=== PATIENT | female | born 1940 | race Caucasian/White ===

== ENCOUNTER 2016-06-13 10:17 | Inpatient (IN) | payer OTHER ==
[~2016-06-13] VITALS: Ht 162.6 cm; Wt 100.0 kg
[~2016-06-13 10:17] MED LIST: ACETAMINOPHEN650 M7 PO; ALLOPURINOL300 MG PO; ASCORBIC ACID500 MG PO; ASPIRIN81 M1 PO; ATORVASTATIN CA10 MG PO; Ascorbic Acid,Ester- PO; BACTRIM,SEPT1 TABLET PO; CALTRATE PLUS1 EACH PO; COUMADIN5 MG PO; Coumadin Protocol PO; D-20002000 UNIT PO; DULCOLAX5 MG PO; Dulcolax PO; EFFEXOR75 MG PO; FISH OIL300 MG PO; FLEXERIL5 MG PO; Flexeril PO; GLIPIZIDE10 MG PO; GLIPIZIDE5 MG PO; Glucotrol PO; LANOXIN125 MCG PO; LEVEMIR FL100 UNIT/1 SC; LIDODERM 5% P1 PATCH TD; LISINOPRIL5 MG PO; LYRICA25 MG PO; LYRICA75 MG PO; MACROBID100 MG PO; MIRALAX17 GM PO; Miralax, Glycolax PO; NEURONTIN300 MG PO; OSTEO BI-FLEX1 EAC1; OXYCONTIN10 MG PO; Oscal 500 w/Vitamin PO; Osteo-Biflex,Flex-A- PO; OxyCONTIN PO; PROTONIX40 MG PO; RENVELA800 MG PO; SENOKOT,SENN1 TABLET PO; SENSIPAR60 MG PO; Senokot S,Pericolace PO; THERAGRAN1 TABLET PO; TRICOR145 MG PO; Tylenol Regular Stre PO; VALIUM5 MG PO; VITAMIN D2000 INTUN; Vitamin D PO; WARFARIN SODIUM5 MG PO; ZESTRIL5 MG; Zestril,Prinivil PO; oxyCODONE PO
[2016-06-13 11:06] LABS: HEMATOCRIT 26.9 % (36.0-46.0); MCHC 33.5 G/DL (30.0-36.0); MCV 92.8 FL (83-99); MEAN PLAT.VOLUME 8.6 uM^3 (9.5-12.4); PLATELET COUNT 323 K/uL (156-360); RBC DIS.WIDTH-CV 13.2 % (11.8-14.6); RBC DIS.WIDTH-SD 45.1 % (39-53); WHITE BLOOD COUNT 7.1 K/uL (4.1-10.2)
[2016-06-13 11:15] LABS: CHLORIDE 96 mEq/L (99-109); POTASSIUM 4.1 mEq/L (3.7-5.4); SODIUM 128 mEq/L (136-147)
[2016-06-13 11:17] LABS: GLUCOSE 197 mg/dL (70-99)
[2016-06-13 11:18] LABS: ANION GAP 11 MEQ/L (2-14); INTER. NORMALIZED RATIO 4.1; PROTHROMBIN TIME 43.3 (9.2-11.2); PTT 57.3 (25-32)
[2016-06-13 11:19] LABS: TOTAL BILIRUBIN 0.7 mg/dL (0.0-1.0)
[2016-06-13 11:21] LABS: ALKALINE PHOSPHATASE 90 IU/L (3-129); GFR ESTIMATE (CALCULATED) 39 mL/min/
[2016-06-13 11:22] LABS: UREA NITROGEN (BUN) 23 mg/dL (9-23)
[2016-06-13 13:15] LABS: ERTH.SED.RATE 44 MM/HR (0-30)
[2016-06-13 17:42] LABS: INTER. NORMALIZED RATIO 3.9; PROTHROMBIN TIME 41.1 (9.2-11.2); PTT 59.2 (25-32)
[2016-06-13 17:51] LABS: IRON 13 MCG/DL (35-150)
[2016-06-13 19:01] VITALS: BP 158/81
[2016-06-13 19:28] LABS: FERRITIN 200 NG/ML (10-291)
[2016-06-14] VITALS (7 sets, daily range): BP systolic 118–150; BP diastolic 55–75
[2016-06-14 05:30] LABS: HEMATOCRIT 25.1 % (36.0-46.0); MCH 31.2 PG (29.0-34.0); MCHC 33.5 G/DL (30.0-36.0); MCV 93.3 FL (83-99); MEAN PLAT.VOLUME 8.7 uM^3 (9.5-12.4); PLATELET COUNT 303 K/uL (156-360); RBC DIS.WIDTH-CV 13.4 % (11.8-14.6); RBC DIS.WIDTH-SD 45.6 % (39-53); RED BLOOD COUNT 2.69 M/uL (3.80-5.20); WHITE BLOOD COUNT 5.4 K/uL (4.1-10.2)
[2016-06-14 05:56] LABS: ALKALINE PHOSPHATASE 69 IU/L (3-129); ANION GAP 9 MEQ/L (2-14); CHLORIDE 97 MEQ/L (99-109); GFR ESTIMATE (CALCULATED) 51 mL/min/; POTASSIUM 3.7 MEQ/L (3.7-5.4); SAMPLE HEMOLYSIS CHECK 0; SAMPLE ICTERIC CHECK 0; SAMPLE LIPEMIA CHECK 0; SODIUM 130 MEQ/L (136-147); TOTAL BILIRUBIN 0.5 MG/DL (0.0-1.0); UREA NITROGEN (BUN) 19 mg/dL (9-23)
[2016-06-14 06:02] LABS: INTER. NORMALIZED RATIO 3.7; PROTHROMBIN TIME 38.8 (9.2-11.2)
[2016-06-14 06:10] LABS: GLUCOSE 107 mg/dL (70-99)
[2016-06-14 06:37] LABS: POINT-OF-CARE METER ID UU14188577
[2016-06-14 12:02] LABS: POINT-OF-CARE METER ID UU14149397
[2016-06-14 17:12] LABS: INTER. NORMALIZED RATIO 3.4; PROTHROMBIN TIME 36.1 (9.2-11.2); PTT 56.2 (25-32)
[2016-06-15] VITALS (8 sets, daily range): BP systolic 118–144; BP diastolic 51–75
[2016-06-15 05:54] LABS: HEMATOCRIT 24.7 % (36.0-46.0); MCH 30.4 PG (29.0-34.0); PLATELET COUNT 295 K/uL (156-360); RBC DIS.WIDTH-CV 13.3 % (11.8-14.6); RBC DIS.WIDTH-SD 46.7 % (39-53)
[2016-06-15 06:10] LABS: INTER. NORMALIZED RATIO 2.9; PROTHROMBIN TIME 30.9 (9.2-11.2)
[2016-06-15 06:21] LABS: ALKALINE PHOSPHATASE 69 IU/L (3-129); ANION GAP 7 MEQ/L (2-14); CHLORIDE 100 MEQ/L (99-109); GFR ESTIMATE (CALCULATED) 46 mL/min/; GLUCOSE 149 mg/dL (70-99); POTASSIUM 3.8 MEQ/L (3.7-5.4); SAMPLE HEMOLYSIS CHECK 0; SAMPLE ICTERIC CHECK 0; SAMPLE LIPEMIA CHECK 0; SODIUM 133 MEQ/L (136-147); TOTAL BILIRUBIN 0.4 MG/DL (0.0-1.0); UREA NITROGEN (BUN) 16 mg/dL (9-23)
[2016-06-15 06:36] LABS: POINT-OF-CARE METER ID UU14149397; POINT-OF-CARE USER ID STWHLR41
[2016-06-15 12:02] LABS: POINT-OF-CARE METER ID UU14188577
[2016-06-15] MEDS ORDERED: K-DUR10 MEQ PO (14:07)
[2016-06-15] MEDS ORDERED: BASAGLAR K100 UNIT/1 SC (14:07)
[2016-06-15] MEDS ORDERED: HYDROCODON-ACE1 EAC8 PO (14:08)
[2016-06-15] MEDS ORDERED: ATORVASTATIN CA10 MG PO (14:08)
[2016-06-15] MEDS ORDERED: JANTOVEN5 MG PO (14:09)
[2016-06-15] MEDS ORDERED: FISH OIL300 MG PO (14:10)
[2016-06-15] MEDS ORDERED: LOSARTAN-HCTZ1 EAC2 PO (14:10)
[2016-06-15 16:42] LABS: POINT-OF-CARE METER ID UU14188577
[2016-06-15 22:16] LABS: POINT-OF-CARE METER ID UU14149397
[2016-06-16] VITALS (9 sets, daily range): BP systolic 122–160; BP diastolic 52–88
[2016-06-16 08:06] LABS: PROTHROMBIN TIME 20.6 (9.2-11.2)
[2016-06-16 08:07] LABS: HEMATOCRIT 29.2 % (36.0-46.0); MCHC 33.2 G/DL (30.0-36.0); MEAN PLAT.VOLUME 8.6 uM^3 (9.5-12.4); PLATELET COUNT 301 K/uL (156-360); RBC DIS.WIDTH-CV 15.3 % (11.8-14.6); RBC DIS.WIDTH-SD 51.2 % (39-53); WHITE BLOOD COUNT 6.1 K/uL (4.1-10.2)
[2016-06-16 08:08] LABS: MCV 90.4 FL (83-99); RED BLOOD COUNT 3.23 M/uL (3.80-5.20)
[2016-06-16 08:12] LABS: ANION GAP 10 MEQ/L (2-14); CHLORIDE 101 MEQ/L (99-109); GFR ESTIMATE (CALCULATED) 51 mL/min/; GLUCOSE 161 mg/dL (70-99); SAMPLE HEMOLYSIS CHECK 0; SAMPLE ICTERIC CHECK 0; SAMPLE LIPEMIA CHECK 0; SODIUM 136 MEQ/L (136-147); UREA NITROGEN (BUN) 15 mg/dL (9-23)
[2016-06-16 11:57] LABS: POINT-OF-CARE METER ID UU14188577
[2016-06-17 05:02] LABS: MCH 29.6 PG (29.0-34.0); MCHC 32.7 G/DL (30.0-36.0); MCV 90.6 FL (83-99); MEAN PLAT.VOLUME 8.7 uM^3 (9.5-12.4); PLATELET COUNT 348 K/uL (156-360); RBC DIS.WIDTH-CV 15.4 % (11.8-14.6); RBC DIS.WIDTH-SD 51.7 % (39-53); RED BLOOD COUNT 3.31 M/uL (3.80-5.20); WHITE BLOOD COUNT 5.1 K/uL (4.1-10.2)
[2016-06-17 05:13] LABS: PROTHROMBIN TIME 21.1 (9.2-11.2)
[2016-06-17 05:14] LABS: CHLORIDE 102 mEq/L (99-109); POTASSIUM 3.7 mEq/L (3.7-5.4); SODIUM 138 mEq/L (136-147)
[2016-06-17 05:16] LABS: GLUCOSE 158 mg/dL (70-99)
[2016-06-17 05:17] LABS: ANION GAP 9 MEQ/L (2-14)
[2016-06-17 05:19] LABS: GFR ESTIMATE (CALCULATED) 57 mL/min/
[2016-06-17 05:20] LABS: UREA NITROGEN (BUN) 13 mg/dL (9-23)
[2016-06-17 08:31] VITALS: BP 178/73
[2016-06-17 16:39] VITALS: BP 171/74
[2016-06-17 19:52] VITALS: BP 169/73
[2016-06-17 23:39] VITALS: BP 156/73
[2016-06-18 06:54] LABS: POINT-OF-CARE METER ID UU14188577
[2016-06-18 07:42] VITALS: BP 152/74
[2016-06-18 07:56] LABS: INTER. NORMALIZED RATIO 2.2; PROTHROMBIN TIME 22.8 (9.2-11.2)
[2016-06-18 10:56] VITALS: BP 150/67
[2016-06-18 11:54] LABS: POINT-OF-CARE METER ID UU14188577
[2016-06-18 17:03] VITALS: BP 185/79
[2016-06-18 21:55] LABS: POINT-OF-CARE METER ID UU14188577
[2016-06-19 00:33] VITALS: BP 139/64
[2016-06-19 05:55] LABS: INTER. NORMALIZED RATIO 2.1; PROTHROMBIN TIME 22.2 (9.2-11.2)
[2016-06-19 07:29] VITALS: BP 158/72
[2016-06-19 07:35] LABS: POINT-OF-CARE METER ID UU14188577
[2016-06-19 11:02] VITALS: BP 152/50
[2016-06-19 11:24] LABS: POINT-OF-CARE METER ID UU14188577
[2016-06-19 15:47] VITALS: BP 131/70
[2016-06-19 16:23] LABS: POINT-OF-CARE METER ID UU14188577
[2016-06-19 21:10] LABS: POINT-OF-CARE METER ID UU14188577
[2016-06-20 00:21] VITALS: BP 130/58
[2016-06-20 05:53] LABS: INTER. NORMALIZED RATIO 2.2; PROTHROMBIN TIME 23.1 (9.2-11.2)
[2016-06-20 07:54] VITALS: BP 136/84
[2016-06-20 11:57] VITALS: BP 185/77
[2016-06-20 16:22] VITALS: BP 154/72
[2016-06-20 23:44] VITALS: BP 146/78
[2016-06-21 06:49] LABS: INTER. NORMALIZED RATIO 2.4; PROTHROMBIN TIME 24.8 (9.2-11.2)
[2016-06-21 07:34] VITALS: BP 151/68
[2016-06-21 11:32] VITALS: BP 150/68
[2016-06-21 15:42] VITALS: BP 158/70
[2016-06-22 00:09] VITALS: BP 130/69
[2016-06-22 08:02] VITALS: BP 125/75
[2016-06-22 12:18] LABS: INTER. NORMALIZED RATIO 2.7; PROTHROMBIN TIME 28.2 (9.2-11.2)
[2016-06-22 16:46] VITALS: BP 191/78
[2016-06-23] VITALS: BP 141/65
[2016-06-23 06:13] LABS: INTER. NORMALIZED RATIO 2.8; PROTHROMBIN TIME 29.8 (9.2-11.2)
[2016-06-23 06:57] LABS: POINT-OF-CARE METER ID UU14149397
[2016-06-23 08:30] VITALS: BP 197/79
[2016-06-23 11:26] LABS: POINT-OF-CARE METER ID UU14188577
[2016-06-23 15:25] VITALS: BP 150/60
[2016-06-23 16:58] VITALS: BP 125/67
[2016-06-23 22:01] LABS: POINT-OF-CARE METER ID UU14188577
[2016-06-24 00:10] VITALS: BP 177/71
[2016-06-24 06:09] LABS: INTER. NORMALIZED RATIO 2.6; PROTHROMBIN TIME 27.4 (9.2-11.2)
[2016-06-24 06:14] LABS: POINT-OF-CARE METER ID UU14188577
[2016-06-24 08:20] VITALS: BP 166/77
[2016-06-24 11:39] LABS: POINT-OF-CARE METER ID UU14188577
[2016-06-24] MEDS ORDERED: NOVOLOG PE100 UNITS/ SC (16:14)
[2016-06-24 16:24] LABS: POINT-OF-CARE METER ID UU14188577
[2016-06-24 16:30] VITALS: BP 159/69
== END 2016-06-24 19:20 | disposition home or self-care (01) | DRG 623 ==
LOC: EME 10:17 → 3EAST 13:39 → EDOF 13:39 → 3EAST 16:52
PROVIDERS: Family Medicine; Internal Medicine; Nurse Practitioner Family
DX: E11.69 Type 2 diabetes mellitus with other specified complication (principal); M86.9 Osteomyelitis, unspecified; L03.116 Cellulitis of left lower limb; E87.1 Hypo-osmolality and hyponatremia; B95.61 Methicillin susceptible Staphylococcus aureus infection as the cause of diseases classified elsewhere; T82.868A Thrombosis due to vascular prosthetic devices, implants and grafts, initial encounter; I82.612 Acute embolism and thrombosis of superficial veins of left upper extremity; L97.529 Non-pressure chronic ulcer of other part of left foot with unspecified severity; D63.8 Anemia in other chronic diseases classified elsewhere; E11.621 Type 2 diabetes mellitus with foot ulcer; E11.65 Type 2 diabetes mellitus with hyperglycemia; E11.43 Type 2 diabetes mellitus with diabetic autonomic (poly)neuropathy; K31.84 Gastroparesis; E11.51 Type 2 diabetes mellitus with diabetic peripheral angiopathy without gangrene; E11.42 Type 2 diabetes mellitus with diabetic polyneuropathy; I10 Essential (primary) hypertension; K21.9 Gastro-esophageal reflux disease without esophagitis; J44.9 Chronic obstructive pulmonary disease, unspecified; J45.909 Unspecified asthma, uncomplicated; M19.90 Unspecified osteoarthritis, unspecified site; M06.9 Rheumatoid arthritis, unspecified; E66.9 Obesity, unspecified; Z96.653 Presence of artificial knee joint, bilateral; Z96.642 Presence of left artificial hip joint; Z68.37 Body mass index [BMI] 37.0-37.9, adult; Z79.01 Long term (current) use of anticoagulants; Z79.82 Long term (current) use of aspirin; Z86.711 Personal history of pulmonary embolism; Z86.718 Personal history of other venous thrombosis and embolism; Z88.5 Allergy status to narcotic agent
CPT/HCPCS: 73630; 76937; 80048; 80053; 82272; 82607; 82728; 82746; 82948; 83540; 84466; 85027; 85610; 85651; 85730; 86850; 86870; 86900; 86901; 86905; 86920; 87040; 87070; 87075; 87077; 87147; 87186; 87205; 93005; 93971; 97530 GP; 99281; 99285; C1894; J0690; J0696; J1815; J2405; J3370; J7030; J7050; P9016; P9040; S0074